=== PATIENT | female | born 1995 | race Caucasian/White ===

== ENCOUNTER 2021-02-18 22:34 | Emergency (ER) | payer SELFPAY ==
[~2021-02-18] VITALS: Ht 162.6 cm; Wt 72.6 kg
[2021-02-18 23:15] VITALS: BP 161/100
--- NOTE | 2021-02-18 23:18 | NUR ---
TO LOBBY A/W BED AMBULATORY
--- NOTE | 2021-02-19 00:25 | NUR ---
SEEN AND EXAMINED BY NAOMI WITH ORDER, CARRIED OUT
[2021-02-19 00:45] VITALS: BP 140/89
--- NOTE | 2021-02-19 00:45 | NUR ---
Patient discharged with v/s stable. Written and verbal after care instructions given and explained. Patient verbalized understanding. Ambulatory with steady gait. All questions addressed prior to discharge. Advised to follow up with PMD.
== END 2021-02-19 00:45 | disposition home or self-care (01) ==
LOC: MED 22:34
DX: R21 Rash and other nonspecific skin eruption (principal); L29.9 Pruritus, unspecified; M25.512 Pain in left shoulder; R07.89 Other chest pain; R11.0 Nausea; R42 Dizziness and giddiness
CPT/HCPCS: 99282; Q0163